=== PATIENT | female | born 1970 | race Caucasian/White ===

== ENCOUNTER 2018-05-09 09:46 | Day surgery (SDC) | payer BC ==
[~2018-05-09 09:46] MED LIST: LIDOCAINE 2% INJ 100 MG/5 ML SDV (FOR ANES.) As Ordered; PROPOFOL 200 MG/20 ML VIAL As Ordered
[2018-05-09] MEDS: NS 1,000 ML IV (10:45)
== END 2018-05-09 13:44 | disposition home or self-care (01) ==
LOC: M OPP 09:46
DX: K92.1 Melena (principal); K62.1 Rectal polyp; D12.4 Benign neoplasm of descending colon; D12.2 Benign neoplasm of ascending colon; D12.0 Benign neoplasm of cecum; K64.8 Other hemorrhoids; R10.13 Epigastric pain; K22.8 Other specified diseases of esophagus; K21.0 Gastro-esophageal reflux disease with esophagitis; K29.70 Gastritis, unspecified, without bleeding; R12 Heartburn; G43.909 Migraine, unspecified, not intractable, without status migrainosus; Z79.899 Other long term (current) drug therapy; Z80.3 Family history of malignant neoplasm of breast
CPT/HCPCS: 45385

== ENCOUNTER → 2019-12-27 | Outpatient (CLI) | payer BC ==
[~2019-12-27] MED LIST changes: +AJOV225I SC; -LIDOCAINE 2% INJ 100 MG/5 ML SDV (FOR ANES.) As Ordered; +METO200T28 PO; +NORT50CA PO; +OMEP10CASR PO; +PROP80CA PO; -PROPOFOL 200 MG/20 ML VIAL As Ordered
--- NOTE | 2019-12-27 11:28 | REP ---
HIDA SCAN WITH GALLBLADDER EJECTION FRACTION: Following the intravenous administration of 6.6 millicuries technetium 99m Mebrofenin, multiple images of the right upper quadrant performed every 5 minutes for a period of 1 hour. There is biliary to bowel transit of 15 minutes post injection. Gallbladder is visualized at 45 minutes post injection. There is no scintigraphic evidence of cholecystitis. At the 1-hour valencia, 8 ounces of Ensure Enlive is ingested and further imaging performed for 1 hour. Gallbladder activity is measured. The gallbladder ejection fraction is calculated to be 31%, which is slightly below the normal value of 35% or greater. IMPRESSION: Mildly low gallbladder ejection fraction. Electronically Signed by Josué Montana MD 01/01/2020 05:59 P
== END ==
LOC: M RAD 08:12
PROVIDERS: ATTEND Physician Assistant Medical
DX: R10.11 Right upper quadrant pain (principal); R11.0 Nausea
CPT/HCPCS: 78227; A9537

== ENCOUNTER → 2020-01-21 | Outpatient (CLI) | payer BC | LOC: M LABSMTC 12:09 | PROVIDERS: ATTEND Anesthesiology | DX: Z01.818 Encounter for other preprocedural examination (principal); Z11.59 Encounter for screening for other viral diseases | CPT/HCPCS: C9803; U0003 ==

== ENCOUNTER 2020-01-24 10:38 | Day surgery (SDC) | payer BC ==
[~2020-01-24] VITALS: Ht 147.3 cm; Wt 57.6 kg
[~2020-01-24 10:38] MED LIST changes: +LIDOCAINE 2% 100MG/5ML SDV (FOR ANES.) As Ordered ONE; +NS 1,000 ML IV ONE; +propofoL 200 MG/20 ML VIAL As Ordered ONE
[2020-01-24 12:09] VITALS: BP 131/69
--- NOTE | 2020-01-24 12:21 | ROOR ---
Patient Name: Deb Becker Procedure Date: 01/24/2020 11:17 AM Date of : 1970 Age: 49 Room: [facility] Gender: Female Note Status: Finalized Procedure: Colonoscopy Indications: High risk colon cancer surveillance: Personal history of colonic polyps Providers: Braden Gallegos MD Referring MD: Nikole RENEE MD Requesting Provider: Medicines: Monitored Anesthesia Care Complications: No immediate complications. Procedure: Pre-Anesthesia Assessment: - Prior to the procedure, a History and Physical was performed, and patient medications and allergies were reviewed. The patient is competent. The risks and benefits of the procedure and the sedation options and risks were discussed with the patient. All questions were answered and informed consent was obtained. Patient identification and proposed procedure were verified by the physician, the nurse and the anesthesiologist in the procedure room. Mental Status Examination: alert and oriented. Airway Examination: normal oropharyngeal airway and neck mobility. Respiratory Examination: clear to auscultation. CV Examination: normal. Prophylactic Antibiotics: The patient does not require prophylactic antibiotics. Prior Anticoagulants: The patient has taken no previous anticoagulant or antiplatelet agents. ASA Grade Assessment: II - A patient with mild systemic disease. After reviewing the risks and benefits, the patient was deemed in satisfactory condition to undergo the procedure. The anesthesia plan was to use monitored anesthesia care (MAC). Immediately prior to administration of medications, the patient was re-assessed for adequacy to receive sedatives. The heart rate, respiratory rate, oxygen saturations, blood pressure, adequacy of pulmonary ventilation, and response to care were monitored throughout the procedure. The physical status of the patient was re-assessed after the procedure. The Colonoscope was introduced through the anus and advanced to the terminal ileum, with identification of the appendiceal orifice and IC valve. The colonoscopy was performed without difficulty. The patient tolerated the procedure well. The quality of the bowel preparation was good. The ileocecal valve, appendiceal orifice, and rectum were photographed. Scope insertion time was 3 minutes. The total duration of the procedure was 14 minutes. Findings: The perianal and digital rectal examinations were normal. The terminal ileum appeared normal. A 4 mm polyp was found in the hepatic flexure. The polyp was sessile. The polyp was removed with a jumbo cold forceps. Resection and retrieval were complete. Verification of patient identification for the specimen was done by the physician and nurse using the patient's name, date and medical record number. Estimated blood loss was minimal. A few eight mm ulcers were found at the splenic flexure. No bleeding was present. No stigmata of recent bleeding were seen. Biopsies were taken with a cold forceps for histology. Non-bleeding external and internal hemorrhoids were found during retroflexion. The hemorrhoids were medium-sized. Impression: - The examined portion of the ileum was normal. - One 4 mm polyp at the hepatic flexure, removed with a jumbo cold forceps. Resected and retrieved. - A few ulcers at the splenic flexure. Biopsied. - Non-bleeding external and internal hemorrhoids. Recommendation: - Patient has a contact number available for emergencies. The signs and symptoms of potential delayed complications were discussed with the patient. Return to normal activities tomorrow. Written discharge instructions were provided to the patient. - High fiber diet. - Continue present medications. - Await pathology results. - Telephone GI clinic for pathology results in 2 weeks. - Repeat colonoscopy in 3 years for surveillance based on pathology results and due to personal history of colon polyps in past Colonoscopy. - Return to primary care physician. Braden Gallegos MD Braden Gallegos MD 01/24/2020 12:20:28 PM Electronically signed by Braden Gallegos MD Number of Addenda: 0 Note Initiated On: 01/24/2020 11:17 AM Estimated Blood Loss: Estimated blood loss was minimal.
== END 2020-01-24 12:36 | disposition home or self-care (01) ==
LOC: M OPP 10:38
PROVIDERS: ATTEND Internal Medicine Gastroenterology
DX: D12.6 Benign neoplasm of colon, unspecified (principal); K63.3 Ulcer of intestine; Z86.010 Personal history of colon polyps; K64.8 Other hemorrhoids; K62.5 Hemorrhage of anus and rectum; R00.0 Tachycardia, unspecified; Z79.899 Other long term (current) drug therapy

== ENCOUNTER → 2022-10-26 | Outpatient (CLI) | payer BC ==
[~2022-10-26] MED LIST changes: -LIDOCAINE 2% 100MG/5ML SDV (FOR ANES.) As Ordered ONE; +METHACHOLINE KIT INH ONE; -NS 1,000 ML IV ONE; -propofoL 200 MG/20 ML VIAL As Ordered ONE
== END ==
LOC: M CARPUL 12:15
PROVIDERS: ATTEND Physician Assistant
DX: R06.00 Dyspnea, unspecified (principal)
CPT/HCPCS: 94070; J7674

== ENCOUNTER 2024-11-07 12:04 | Inpatient (IN) | payer BC ==
[~2024-11-07] VITALS: Ht 147.3 cm; Wt 64.4 kg
[~2024-11-07 12:04] MED LIST changes: -METHACHOLINE KIT INH ONE; +METO200T15 PO; -METO200T28 PO
[2024-11-07 13:17] LABS: BASO % 0.2 % (0.0-1.0); HEMATOCRIT 37.6 % (36.0-47.0); HEMOGLOBIN 12.3 g/dl (12.0-15.5); LYMPH # 0.6 10^3/uL (1.5-5.0); MEAN CORPUSCULAR HEMOGLOBIN 31.3 pg (27.0-33.0); MEAN CORPUSCULAR HGB CONC 32.7 g/dl (32.0-36.5); MEAN CORPUSCULAR VOLUME 95.7 fl (80.0-96.0); MONO # 0.2 10^3/uL (0.0-0.8); NEUTROPHILS # 3.7 10^3/uL (1.5-8.5); NEUTROPHILS % 80.1 % (36.0-66.0); PLATELET COUNT, AUTOMATED 200 10^3/uL (150-450); RED BLOOD COUNT 3.93 10^6/uL (4.00-5.40); WHITE BLOOD COUNT 4.6 10^3/uL (4.0-10.0)
[2024-11-07 13:19] LABS: VENOUS BASE EXCESS -1.7 (-2.0-2.0); VENOUS HCO3 20.2 MMOL/L (23.0-27.0); VENOUS O2 SATURATION 98.5 % (60.0-80.0); VENOUS PARTIAL PRESSURE O2 134.4 mmHg (30.0-50.0); VENOUS PH 7.492 UNITS (7.330-7.430); VENOUS STANDARD HCO3 23.1 MMOL/L
[2024-11-07] MEDS ORDERED: BENZ200C70 PO (13:57)
[2024-11-07] MEDS ORDERED: VENTAER INH (13:57)
[2024-11-07] MEDS ORDERED: FLUO1TAB4 PO (13:57)
[2024-11-07] MEDS ORDERED: CLON0.5T2 PO (13:58)
[2024-11-07] MEDS ORDERED: BUDE10.32 INH (13:58)
[2024-11-07] MEDS ORDERED: HOME MED LIST COMPLETE! XX SCH (14:00)
[2024-11-07] MEDS: methylPREDNISolone 125MG 2ML VIAL IV ONE (14:14)
[2024-11-07] MEDS: cefTRIAXone SOD 2 GM in DEXTROSE 5% (D5W) ADV/MINI-BAG 50 ML IV ONE (14:14)
[2024-11-07] MEDS: ASPIRIN 81MG CHEW TABLET PO ONE (14:22)
[2024-11-07 14:27] LABS: INR 0.91; PROTHROMBIN TIME 12.6 SECONDS (12.5-14.5)
[2024-11-07 14:47] LABS: ALBUMIN 2.1 G/DL (3.2-5.2); ALKALINE PHOSPHATASE 200 U/L (35-104); ALT/SGPT 60 U/L (7.0-40); AST/SGOT 99 U/L (<34); BILIRUBIN,DIRECT 0.2 MG/DL (<0.4); BILIRUBIN,TOTAL 0.4 MG/DL (0.3-1.2); BLOOD UREA NITROGEN 24 MG/DL (9-23); CALCIUM LEVEL 7.3 MG/DL (8.5-10.1); CARBON DIOXIDE LEVEL 24 MMOL/L (20-31); CHLORIDE LEVEL 102 MMOL/L (98-107); CK-MB VALUE MASS < 1.0 NG/ML (<3.6); CPK CREATINE PHOSPHOKINASE 235 U/L (34-145); CREATININE FOR GFR 0.87 MG/DL (0.55-1.30); GLOMERULAR FILTRATION RATE 80.1 (>51); GLUCOSE, FASTING 85 MG/DL (60-100); MB/CK RELATIVE INDEX 0.42 (< OR =4); POTASSIUM SERUM 4.7 MMOL/L (3.5-5.1); SODIUM LEVEL 134 MMOL/L (136-145); TOTAL PROTEIN 5.4 G/DL (5.7-8.2)
[2024-11-07] MEDS ORDERED: ISOVUE-370 76% 100ML VIAL As Ordered ONE (14:53)
[2024-11-07] MEDS: AZITHROMYCIN INJ 500 MG, VIAL MATE ADAPTER 1 EACH in D5W 250 ML IV ONE (15:26)
[2024-11-07] MEDS: IPRATROPIUM 0.5MG/ALBUTEROL 2.5MG INH SOL UD 3ML NEB PRN (15:38)
[2024-11-07] MEDS ORDERED: OMEPRAZOLE 20MG CAP PO PRN (15:55)
[2024-11-07] MEDS: OSELTAMIVIR PHOSPHATE 75 MG CAP PO ONE (17:12)
[2024-11-07 17:13] LABS: PROCALCITONIN 0.69 ng/ml
[2024-11-07] MEDS: NS (Normal Saline) 0.9% 1,000 ML IV ONE (17:13)
[2024-11-07 17:20] LABS: HEPATITIS B SURFACE ANTIGEN NEGATIVE (NEGATIVE)
[2024-11-07 17:30] VITALS: BP 108/66; TEMP 96.6; TEMP 97.3; O2SAT 90
[2024-11-07 17:42] LABS: C REACTIVE PROTEIN QUANTITATIV 30.99 MG/DL (<1.0); HEPATITIS B CORE ANTIBODY IGM NEGATIVE (NEGATIVE); HEPATITIS C VIRUS ABY INDEX 0.02 INDEX (<0.8)
[2024-11-07] MEDS: FLUoxetine 20MG CAP PO SCH (18:29)
[2024-11-07] MEDS: IPRATROPIUM 0.5MG/ALBUTEROL 2.5MG INH SOL UD 3ML NEB SCH (20:08)
[2024-11-07] MEDS: SYMBICORT 160/4.5MCG INHALER 6GM INH SCH (20:08)
[2024-11-07 20:41] VITALS: BP 92/58; TEMP 96.7; TEMP 98.4; O2SAT 91
[2024-11-07] MEDS: METOPROLOL SUCC (TopROL XL) 100MG *XL* TAB PO SCH (21:00)
[2024-11-07] MEDS: guaiFENesin ER TABLET 600 MG TAB PO SCH (21:06)
[2024-11-07] MEDS: NORTRIPTYLINE 25 MG CAP PO SCH (21:06)
[2024-11-07] MEDS: DOXYCYCLINE HYCLATE 100 MG in DEXTROSE 5% (D5W) MINI-BAG PLU 100 ML IV SCH (21:06)
[2024-11-07 22:47] VITALS: BP 104/66
[2024-11-08 05:08] VITALS: BP 108/87; TEMP 97; O2SAT 90
[2024-11-08 06:32] LABS: ALBUMIN 1.9 G/DL (3.2-5.2); ALKALINE PHOSPHATASE 179 U/L (35-104); ALT/SGPT 51 U/L (7.0-40); AST/SGOT 61 U/L (<34); BILIRUBIN,TOTAL 0.2 MG/DL (0.3-1.2); BLOOD UREA NITROGEN 15 MG/DL (9-23); CALCIUM LEVEL 7.2 MG/DL (8.5-10.1); CARBON DIOXIDE LEVEL 25 MMOL/L (20-31); CHLORIDE LEVEL 106 MMOL/L (98-107); CREATININE FOR GFR 0.64 MG/DL (0.55-1.30); GLOMERULAR FILTRATION RATE > 90.0 (>51); GLUCOSE, FASTING 167 MG/DL (60-100); POTASSIUM SERUM 3.5 MMOL/L (3.5-5.1); SODIUM LEVEL 142 MMOL/L (136-145)
[2024-11-08] MEDS: predniSONE 20 MG TAB PO SCH (08:34)
[2024-11-08] MEDS: DOXYCYCLINE HYCLATE 100MG TABLET PO SCH (08:35)
[2024-11-08] MEDS: OSELTAMIVIR PHOSPHATE 75 MG CAP PO SCH (08:35)
[2024-11-08] MEDS: ENOXAPARIN 40MG/0.4ML SYRINGE (J1650 PER 10MG) SC SCH (08:36)
[2024-11-08] MEDS: cefTRIAXone SOD 1 GM in DEXTROSE 5% (D5W) ADV/MINI-BAG 50 ML IV SCH (08:45)
[2024-11-08] MEDS: IBUPROFEN 600MG TAB PO PRN (08:54)
[2024-11-08] MEDS: MAG SULF 1GM/100ML (MAG RUN) 1 GM in IV 1 EA IV SCH (11:07)
[2024-11-08 12:00] VITALS: BP 125/75; O2SAT 92
[2024-11-08 13:49] VITALS: TEMP 98
[2024-11-08 16:39] LABS: ABG BASE EXCESS -1.6 (-2.0-2.0); ABG HCO3 22.3 MMOL/L (22.0-26.0); ABG O2 SATURATION 94.5 % (95.0-99.0); ABG PARTIAL PRESSURE CO2 34.8 mmHg (35.0-45.0); ABG PARTIAL PRESSURE O2 74.6 mmHg (75.0-100.0); ABG STANDARD HCO3 23.1 MMOL/L. (22.0-26.0); ABG TOTAL CO2 23.3 MMOL/L (22.0-29.0); ABG pH (ARTERIAL) 7.424 UNITS (7.350-7.450)
[2024-11-08 18:51] VITALS: O2SAT 92
[2024-11-08 20:00] VITALS: BP 124/75; TEMP 98; O2SAT 91
[2024-11-09 03:49] VITALS: BP 125/84; TEMP 97; O2SAT 95
[2024-11-09 07:24] LABS: BASO % 0.1 % (0.0-1.0); HEMATOCRIT 32.5 % (36.0-47.0); LYMPH # 0.8 10^3/uL (1.5-5.0); MEAN CORPUSCULAR HEMOGLOBIN 31.7 pg (27.0-33.0); MEAN CORPUSCULAR HGB CONC 33.8 g/dl (32.0-36.5); MEAN CORPUSCULAR VOLUME 93.7 fl (80.0-96.0); MONO # 0.6 10^3/uL (0.0-0.8); MONO % 5.7 % (2.0-8.0); NEUTROPHILS # 8.3 10^3/uL (1.5-8.5); NEUTROPHILS % 85.5 % (36.0-66.0); PLATELET COUNT, AUTOMATED 295 10^3/uL (150-450); RED BLOOD COUNT 3.47 10^6/uL (4.00-5.40); WHITE BLOOD COUNT 9.7 10^3/uL (4.0-10.0)
[2024-11-09 07:47] LABS: ALKALINE PHOSPHATASE 151 U/L (35-104); ALT/SGPT 43 U/L (7.0-40); AST/SGOT 54 U/L (<34); BILIRUBIN,DIRECT 0.1 MG/DL (<0.4); BILIRUBIN,TOTAL 0.3 MG/DL (0.3-1.2); BLOOD UREA NITROGEN 22 MG/DL (9-23); CALCIUM LEVEL 7.8 MG/DL (8.5-10.1); CARBON DIOXIDE LEVEL 26 MMOL/L (20-31); CHLORIDE LEVEL 108 MMOL/L (98-107); CREATININE FOR GFR 0.66 MG/DL (0.55-1.30); GLOMERULAR FILTRATION RATE > 90.0 (>51); GLUCOSE, FASTING 126 MG/DL (60-100); MAGNESIUM LEVEL 2.2 MG/DL (1.8-2.4); POTASSIUM SERUM 3.5 MMOL/L (3.5-5.1); SODIUM LEVEL 143 MMOL/L (136-145); TOTAL PROTEIN 5.1 G/DL (5.7-8.2)
[2024-11-09] MEDS: BUDESONIDE 180MCG INHALER (PULMICORT FLEXHALER) INH SCH (08:00)
[2024-11-09 12:00] VITALS: BP 116/70; TEMP 96.8; O2SAT 90
[2024-11-09] MEDS: methylPREDNISolone 40MG 1ML VIAL IV SCH (14:05)
[2024-11-09 20:10] VITALS: BP_SYST 108; BP_SYST 109; BP_DIAS 68; BP_DIAS 69; TEMP 97.3; O2SAT 90
[2024-11-09] MEDS: clonazePAM 0.5 MG TAB PO PRN (22:37)
[2024-11-09 23:00] VITALS: O2SAT 90
[2024-11-10] VITALS (22 sets, daily range): BP systolic 100–135; BP diastolic 60–80; TEMP 97–98.5; O2SAT 79–98
[2024-11-10] MEDS: IPRATROPIUM 0.5MG/ALBUTEROL 2.5MG INH SOL UD 3ML NEB PRN (05:55)
[2024-11-10 07:06] LABS: ALBUMIN 2.1 G/DL (3.2-5.2); ALKALINE PHOSPHATASE 147 U/L (35-104); ALT/SGPT 46 U/L (7.0-40); AST/SGOT 54 U/L (<34); BILIRUBIN,DIRECT 0.1 MG/DL (<0.4); BILIRUBIN,TOTAL 0.3 MG/DL (0.3-1.2); BLOOD UREA NITROGEN 25 MG/DL (9-23); CALCIUM LEVEL 7.9 MG/DL (8.5-10.1); CARBON DIOXIDE LEVEL 27 MMOL/L (20-31); CHLORIDE LEVEL 107 MMOL/L (98-107); CREATININE FOR GFR 0.62 MG/DL (0.55-1.30); GLOMERULAR FILTRATION RATE > 90.0 (>51); GLUCOSE, FASTING 131 MG/DL (60-100); MAGNESIUM LEVEL 2.2 MG/DL (1.8-2.4); POTASSIUM SERUM 3.7 MMOL/L (3.5-5.1); SODIUM LEVEL 145 MMOL/L (136-145); TOTAL PROTEIN 5.3 G/DL (5.7-8.2)
[2024-11-10 07:15] LABS: BASO % 0.1 % (0.0-1.0); HEMATOCRIT 34.2 % (36.0-47.0); HEMOGLOBIN 11.2 g/dl (12.0-15.5); LYMPH # 0.6 10^3/uL (1.5-5.0); LYMPH % 3.8 % (24.0-44.0); MEAN CORPUSCULAR HEMOGLOBIN 31.2 pg (27.0-33.0); MEAN CORPUSCULAR HGB CONC 32.7 g/dl (32.0-36.5); MEAN CORPUSCULAR VOLUME 95.3 fl (80.0-96.0); MONO # 0.7 10^3/uL (0.0-0.8); MONO % 4.4 % (2.0-8.0); NEUTROPHILS # 13.9 10^3/uL (1.5-8.5); NEUTROPHILS % 90.9 % (36.0-66.0); PLATELET COUNT, AUTOMATED 339 10^3/uL (150-450); RED BLOOD COUNT 3.59 10^6/uL (4.00-5.40); WHITE BLOOD COUNT 15.3 10^3/uL (4.0-10.0)
[2024-11-10] MEDS ORDERED: VANCOMYCIN HCL 1 MG in IV FLUID PLACE HOLDER 1 EA IV SCH (07:35)
[2024-11-10] MEDS: BUDESONIDE 0.5 MG/2 ML INHALATION SUSPENSION NEB STA (08:02)
[2024-11-10 08:33] LABS: ABG BASE EXCESS 3.5 (-2.0-2.0); ABG HCO3 27.5 MMOL/L (22.0-26.0); ABG O2 SATURATION 94.6 % (95.0-99.0); ABG PARTIAL PRESSURE CO2 39.8 mmHg (35.0-45.0); ABG PARTIAL PRESSURE O2 78.1 mmHg (75.0-100.0); ABG STANDARD HCO3 27.5 MMOL/L. (22.0-26.0); ABG TOTAL CO2 28.8 MMOL/L (22.0-29.0); ABG pH (ARTERIAL) 7.458 UNITS (7.350-7.450)
[2024-11-10] MEDS: CEFEPIME HCL 2 GM in DEXTROSE 5% (D5W) ADV/MINI-BAG 50 ML IV SCH (09:29)
[2024-11-10] MEDS: VANCOMYCIN HCL 1,000 MG, VIAL MATE ADAPTER 1 EACH in NS 250 ML IV ONE (14:01)
[2024-11-10] MEDS: BUDESONIDE 0.5 MG/2 ML INHALATION SUSPENSION NEB SCH (19:37)
[2024-11-10] MEDS: VANCOMYCIN HCL 750 MG, VIAL MATE ADAPTER 1 EACH in NS 250 ML IV SCH (20:14)
[2024-11-10] MEDS: BENZONATATE 100MG CAPSULE PO PRN (22:08)
[2024-11-11] VITALS (31 sets, daily range): BP systolic 107–155; BP diastolic 56–72; TEMP 97.1–98.3; O2SAT 83–98
[2024-11-11 05:07] LABS: BASO % 0.2 % (0.0-1.0); HEMOGLOBIN 10.6 g/dl (12.0-15.5); LYMPH # 0.7 10^3/uL (1.5-5.0); LYMPH % 3.6 % (24.0-44.0); MEAN CORPUSCULAR HEMOGLOBIN 31.3 pg (27.0-33.0); MEAN CORPUSCULAR HGB CONC 33.1 g/dl (32.0-36.5); MEAN CORPUSCULAR VOLUME 94.4 fl (80.0-96.0); MONO # 0.5 10^3/uL (0.0-0.8); MONO % 2.6 % (2.0-8.0); NEUTROPHILS % 92.2 % (36.0-66.0); PLATELET COUNT, AUTOMATED 328 10^3/uL (150-450); RED BLOOD COUNT 3.39 10^6/uL (4.00-5.40); WHITE BLOOD COUNT 18.4 10^3/uL (4.0-10.0)
[2024-11-11 05:49] LABS: ALBUMIN 1.8 G/DL (3.2-5.2); ALKALINE PHOSPHATASE 117 U/L (35-104); ALT/SGPT 42 U/L (7.0-40); AST/SGOT 48 U/L (<34); BILIRUBIN,DIRECT 0.1 MG/DL (<0.4); BILIRUBIN,TOTAL 0.3 MG/DL (0.3-1.2); BLOOD UREA NITROGEN 24 MG/DL (9-23); CALCIUM LEVEL 7.5 MG/DL (8.5-10.1); CARBON DIOXIDE LEVEL 27 MMOL/L (20-31); CHLORIDE LEVEL 106 MMOL/L (98-107); CREATININE FOR GFR 0.55 MG/DL (0.55-1.30); GLOMERULAR FILTRATION RATE > 90.0 (>51); GLUCOSE, FASTING 232 MG/DL (60-100); MAGNESIUM LEVEL 2.1 MG/DL (1.8-2.4); POTASSIUM SERUM 3.8 MMOL/L (3.5-5.1); SODIUM LEVEL 143 MMOL/L (136-145); TOTAL PROTEIN 4.9 G/DL (5.7-8.2)
[2024-11-11] MEDS: FUROSEMIDE 20MG/2ML VIAL IV ONE ×2 (10:03→12:36)
[2024-11-11 10:39] LABS: VANCOMYCIN LEVEL TROUGH 13.5 UG/ML (10.0-20.0)
[2024-11-11] MEDS ORDERED: FUROSEMIDE 20MG/2ML VIAL IV ONE (11:05)
[2024-11-11 14:40] LABS: PROCALCITONIN 0.18 ng/ml
[2024-11-11] MEDS: METOPROLOL SUCC (TopROL XL) 50MG **XL** TAB PO SCH (20:18)
[2024-11-12] VITALS (29 sets, daily range): BP systolic 106–135; BP diastolic 55–79; TEMP 97–98.8; O2SAT 89–98
[2024-11-12 05:19] LABS: BASO % 0.2 % (0.0-1.0); HEMATOCRIT 31.7 % (36.0-47.0); HEMOGLOBIN 10.2 g/dl (12.0-15.5); LYMPH # 0.6 10^3/uL (1.5-5.0); LYMPH % 3.5 % (24.0-44.0); MEAN CORPUSCULAR HEMOGLOBIN 30.5 pg (27.0-33.0); MEAN CORPUSCULAR HGB CONC 32.2 g/dl (32.0-36.5); MEAN CORPUSCULAR VOLUME 94.9 fl (80.0-96.0); MONO # 0.5 10^3/uL (0.0-0.8); NEUTROPHILS # 15.4 10^3/uL (1.5-8.5); NEUTROPHILS % 91.6 % (36.0-66.0); PLATELET COUNT, AUTOMATED 362 10^3/uL (150-450); RED BLOOD COUNT 3.34 10^6/uL (4.00-5.40); WHITE BLOOD COUNT 16.8 10^3/uL (4.0-10.0)
[2024-11-12 05:40] LABS: ALBUMIN 1.7 G/DL (3.2-5.2); ALKALINE PHOSPHATASE 113 U/L (35-104); ALT/SGPT 40 U/L (7.0-40); AST/SGOT 40 U/L (<34); BILIRUBIN,DIRECT 0.2 MG/DL (<0.4); BILIRUBIN,TOTAL 0.4 MG/DL (0.3-1.2); BLOOD UREA NITROGEN 30 MG/DL (9-23); CALCIUM LEVEL 7.7 MG/DL (8.5-10.1); CARBON DIOXIDE LEVEL 31 MMOL/L (20-31); CHLORIDE LEVEL 106 MMOL/L (98-107); CREATININE FOR GFR 0.55 MG/DL (0.55-1.30); GLOMERULAR FILTRATION RATE > 90.0 (>51); GLUCOSE, FASTING 148 MG/DL (60-100); MAGNESIUM LEVEL 2.4 MG/DL (1.8-2.4); POTASSIUM SERUM 3.9 MMOL/L (3.5-5.1); SODIUM LEVEL 145 MMOL/L (136-145); TOTAL PROTEIN 5.1 G/DL (5.7-8.2)
[2024-11-12 09:03] LABS: ABG BASE EXCESS 3.3 (-2.0-2.0); ABG HCO3 27.3 MMOL/L (22.0-26.0); ABG PARTIAL PRESSURE CO2 39.4 mmHg (35.0-45.0); ABG PARTIAL PRESSURE O2 96.4 mmHg (75.0-100.0); ABG STANDARD HCO3 27.4 MMOL/L. (22.0-26.0); ABG TOTAL CO2 28.5 MMOL/L (22.0-29.0); ABG pH (ARTERIAL) 7.458 UNITS (7.350-7.450)
[2024-11-12] MEDS: FUROSEMIDE 20MG/2ML VIAL IV ONE (10:39)
[2024-11-12] MEDS: ALPRAZolam 0.5 MG TAB PO PRN (14:53)
[2024-11-12] MEDS: methylPREDNISolone 1,000 MG, VIAL MATE ADAPTER 1 EACH in NS 100 ML IV SCH (16:11)
[2024-11-12] MEDS: clonazePAM 0.5 MG TAB PO SCH (21:35)
[2024-11-13] VITALS (57 sets, daily range): BP systolic 71–202; BP diastolic 36–103; TEMP 96.8–99.9; O2SAT 75–98
[2024-11-13 06:03] LABS: BASO % 0.1 % (0.0-1.0); HEMATOCRIT 29.9 % (36.0-47.0); HEMOGLOBIN 9.9 g/dl (12.0-15.5); LYMPH # 0.6 10^3/uL (1.5-5.0); LYMPH % 3.9 % (24.0-44.0); MEAN CORPUSCULAR HEMOGLOBIN 31.4 pg (27.0-33.0); MEAN CORPUSCULAR HGB CONC 33.1 g/dl (32.0-36.5); MEAN CORPUSCULAR VOLUME 94.9 fl (80.0-96.0); MONO # 0.5 10^3/uL (0.0-0.8); MONO % 3.3 % (2.0-8.0); NEUTROPHILS % 90.3 % (36.0-66.0); PLATELET COUNT, AUTOMATED 353 10^3/uL (150-450); RED BLOOD COUNT 3.15 10^6/uL (4.00-5.40); WHITE BLOOD COUNT 14.4 10^3/uL (4.0-10.0)
[2024-11-13 06:35] LABS: ALBUMIN 1.7 G/DL (3.2-5.2); ALKALINE PHOSPHATASE 113 U/L (35-104); ALT/SGPT 54 U/L (7.0-40); AST/SGOT 39 U/L (<34); BILIRUBIN,DIRECT 0.2 MG/DL (<0.4); BILIRUBIN,TOTAL 0.4 MG/DL (0.3-1.2); BLOOD UREA NITROGEN 29 MG/DL (9-23); CALCIUM LEVEL 7.8 MG/DL (8.5-10.1); CARBON DIOXIDE LEVEL 30 MMOL/L (20-31); CHLORIDE LEVEL 102 MMOL/L (98-107); CREATININE FOR GFR 0.54 MG/DL (0.55-1.30); GLOMERULAR FILTRATION RATE > 90.0 (>51); GLUCOSE, FASTING 207 MG/DL (60-100); MAGNESIUM LEVEL 2.4 MG/DL (1.8-2.4); POTASSIUM SERUM 3.7 MMOL/L (3.5-5.1); SODIUM LEVEL 143 MMOL/L (136-145); TOTAL PROTEIN 4.9 G/DL (5.7-8.2)
[2024-11-13] MEDS: ETOMIDATE INJ 20MG/10ML VIAL IV STA (11:40)
[2024-11-13] MEDS ORDERED: ROCURONIUM BROMIDE 50MG/5ML VIAL IV SCH (11:41)
[2024-11-13] MEDS: LR 1,000 ML IV SCH (11:43)
[2024-11-13] MEDS: propofoL 1,000 MG in IV 1 EA IV SCH (11:54)
[2024-11-13] MEDS ORDERED: PHENYLephrine 500MCG 5ML (100MCG/ML) SYRINGE As Ordered ONE (12:03)
[2024-11-13 12:32] LABS: ABG BASE EXCESS 4.7 (-2.0-2.0); ABG HCO3 30.1 MMOL/L (22.0-26.0); ABG O2 SATURATION 97.2 % (95.0-99.0); ABG PARTIAL PRESSURE CO2 48.3 mmHg (35.0-45.0); ABG PARTIAL PRESSURE O2 104.9 mmHg (75.0-100.0); ABG STANDARD HCO3 28.7 MMOL/L. (22.0-26.0); ABG TOTAL CO2 31.6 MMOL/L (22.0-29.0); ABG pH (ARTERIAL) 7.413 UNITS (7.350-7.450)
[2024-11-13] MEDS ORDERED: FENTANYL DRIP LOCK BOX KEY 1 EACH XX PRN (13:00)
[2024-11-13] MEDS: MIDAZOLAM INJ 2MG/2ML VIAL IV PRN (13:16)
[2024-11-13] MEDS: fentaNYL CITRATE/NaCl 1,000 MCG in IV 1 EA IV SCH (13:17)
[2024-11-13] MEDS: PANTOPRAZOLE 40MG VIAL IV SCH (16:34)
[2024-11-14] VITALS (60 sets, daily range): BP systolic 75–128; BP diastolic 47–66; TEMP 98.6–99.8; O2SAT 84–99
[2024-11-14 04:47] LABS: BASO % 0.1 % (0.0-1.0); HEMATOCRIT 29.6 % (36.0-47.0); HEMOGLOBIN 9.7 g/dl (12.0-15.5); LYMPH # 0.4 10^3/uL (1.5-5.0); MEAN CORPUSCULAR HEMOGLOBIN 31.4 pg (27.0-33.0); MEAN CORPUSCULAR HGB CONC 32.8 g/dl (32.0-36.5); MEAN CORPUSCULAR VOLUME 95.8 fl (80.0-96.0); MONO # 0.6 10^3/uL (0.0-0.8); MONO % 5.3 % (2.0-8.0); NEUTROPHILS # 10.9 10^3/uL (1.5-8.5); NEUTROPHILS % 89.5 % (36.0-66.0); PLATELET COUNT, AUTOMATED 330 10^3/uL (150-450); RED BLOOD COUNT 3.09 10^6/uL (4.00-5.40); WHITE BLOOD COUNT 12.2 10^3/uL (4.0-10.0)
[2024-11-14 05:21] LABS: ALBUMIN 1.7 G/DL (3.2-5.2); ALKALINE PHOSPHATASE 100 U/L (35-104); ALT/SGPT 54 U/L (7.0-40); AST/SGOT 45 U/L (<34); BILIRUBIN,DIRECT 0.2 MG/DL (<0.4); BILIRUBIN,TOTAL 0.4 MG/DL (0.3-1.2); BLOOD UREA NITROGEN 48 MG/DL (9-23); CALCIUM LEVEL 8.1 MG/DL (8.5-10.1); CARBON DIOXIDE LEVEL 27 MMOL/L (20-31); CHLORIDE LEVEL 104 MMOL/L (98-107); CREATININE FOR GFR 0.92 MG/DL (0.55-1.30); GLOMERULAR FILTRATION RATE 74.9 (>51); GLUCOSE, FASTING 259 MG/DL (60-100); MAGNESIUM LEVEL 2.7 MG/DL (1.8-2.4); POTASSIUM SERUM 3.8 MMOL/L (3.5-5.1); SODIUM LEVEL 142 MMOL/L (136-145); TOTAL PROTEIN 5.1 G/DL (5.7-8.2)
[2024-11-14 13:00] LABS: HIV 1&2 SCREEN NEGATIVE (NEGATIVE)
[2024-11-14] MEDS ORDERED: MEROPENEM INJ 1 GM in IV 1 EA IV SCH (13:00)
[2024-11-14] MEDS: AMPHOTERICIN B LIPOSOME IV SCH (13:38)
[2024-11-14] MEDS: D5W IV SCH (13:38)
[2024-11-14] MEDS: NS (Normal Saline) 0.9% 1,000 ML IV ONE (15:20)
[2024-11-14] MEDS: VANCOMYCIN HCL 1,000 MG, VIAL MATE ADAPTER 1 EACH in NS 250 ML IV ONE (16:50)
[2024-11-14] MEDS: MEROPENEM INJ 1 GM in IV 1 EA IV SCH (18:10)
[2024-11-14] MEDS: methylPREDNISolone 125MG 2ML VIAL IV SCH (18:10)
[2024-11-14] MEDS: VANCOMYCIN HCL 1,000 MG, VIAL MATE ADAPTER 1 EACH in NS 250 ML IV SCH (22:18)
[2024-11-15] VITALS (32 sets, daily range): BP systolic 92–128; BP diastolic 51–69; TEMP 98.4–100.6; O2SAT 88–98
[2024-11-15 05:07] LABS: BASO % 0.1 % (0.0-1.0); HEMATOCRIT 26.3 % (36.0-47.0); HEMOGLOBIN 8.5 g/dl (12.0-15.5); LYMPH # 0.3 10^3/uL (1.5-5.0); LYMPH % 1.8 % (24.0-44.0); MEAN CORPUSCULAR HEMOGLOBIN 31.4 pg (27.0-33.0); MEAN CORPUSCULAR HGB CONC 32.3 g/dl (32.0-36.5); MONO # 0.6 10^3/uL (0.0-0.8); MONO % 4.1 % (2.0-8.0); NEUTROPHILS # 13.9 10^3/uL (1.5-8.5); NEUTROPHILS % 89.3 % (36.0-66.0); PLATELET COUNT, AUTOMATED 321 10^3/uL (150-450); RED BLOOD COUNT 2.71 10^6/uL (4.00-5.40); WHITE BLOOD COUNT 15.5 10^3/uL (4.0-10.0)
[2024-11-15 05:40] LABS: ALBUMIN 1.5 G/DL (3.2-5.2); BILIRUBIN,DIRECT 0.2 MG/DL (<0.4); BILIRUBIN,TOTAL 0.3 MG/DL (0.3-1.2); CALCIUM LEVEL 7.8 MG/DL (8.5-10.1); CREATININE FOR GFR 0.88 MG/DL (0.55-1.30); MAGNESIUM LEVEL 2.7 MG/DL (1.8-2.4); POTASSIUM SERUM 4.3 MMOL/L (3.5-5.1); TOTAL PROTEIN 4.7 G/DL (5.7-8.2)
[2024-11-15] MEDS ORDERED: GLUCAGON INJ 1MG VIAL SC PRN (07:30)
[2024-11-15] MEDS ORDERED: GLUCOSE 4 GM CHEW PO PRN (07:30)
[2024-11-15] MEDS ORDERED: DEXTROSE 50% 50ML SYRINGE IV PRN (07:30)
[2024-11-15 08:19] LABS: ABG HCO3 26.4 MMOL/L (22.0-26.0); ABG O2 SATURATION 97.8 % (95.0-99.0); ABG PARTIAL PRESSURE CO2 40.2 mmHg (35.0-45.0); ABG PARTIAL PRESSURE O2 107.9 mmHg (75.0-100.0); ABG STANDARD HCO3 26.3 MMOL/L. (22.0-26.0); ABG TOTAL CO2 27.6 MMOL/L (22.0-29.0); ABG pH (ARTERIAL) 7.435 UNITS (7.350-7.450)
[2024-11-15] MEDS ORDERED: ACETAMINOPHEN 325MG/10.15ML UDC GT PRN (08:30)
[2024-11-15 09:22] LABS: ABG HCO3 24.4 MMOL/L (22.0-26.0); ABG PARTIAL PRESSURE CO2 38.8 mmHg (35.0-45.0); ABG PARTIAL PRESSURE O2 176.7 mmHg (75.0-100.0); ABG STANDARD HCO3 24.5 MMOL/L. (22.0-26.0); ABG TOTAL CO2 25.6 MMOL/L (22.0-29.0); ABG pH (ARTERIAL) 7.417 UNITS (7.350-7.450)
[2024-11-15] MEDS: MIDAZOLAM 100MG/100ML-0.9%NACL 100 MG in IV 1 EA IV SCH (09:30)
[2024-11-15] MEDS: INSULIN LISPRO (NovoLOG) PER UNIT SC SCH (10:10)
[2024-11-15] MEDS: INSULIN LISPRO (NovoLOG) PER UNIT SC ONE (10:23)
[2024-11-15] MEDS ORDERED: D5W IV SCH (14:00)
[2024-11-15] MEDS ORDERED: AMPHOTERICIN B LIPOSOME IV SCH (14:00)
[2024-11-15] MEDS: D5W IV SCH (14:28)
[2024-11-15] MEDS: AMPHOTERICIN B LIPOSOME IV SCH (14:28)
[2024-11-15 15:19] LABS: C REACTIVE PROTEIN QUANTITATIV 5.19 MG/DL (<1.0)
[2024-11-16] VITALS (39 sets, daily range): BP systolic 97–139; BP diastolic 50–70; TEMP 97.3–100.4; O2SAT 89–96
[2024-11-16 05:49] LABS: ABG BASE EXCESS 3.8 (-2.0-2.0); ABG HCO3 28.3 MMOL/L (22.0-26.0); ABG O2 SATURATION 95.8 % (95.0-99.0); ABG PARTIAL PRESSURE CO2 42.6 mmHg (35.0-45.0); ABG PARTIAL PRESSURE O2 81.6 mmHg (75.0-100.0); ABG STANDARD HCO3 27.9 MMOL/L. (22.0-26.0); ABG TOTAL CO2 29.7 MMOL/L (22.0-29.0); ABG pH (ARTERIAL) 7.441 UNITS (7.350-7.450)
[2024-11-16 06:17] LABS: HEMATOCRIT 26.4 % (36.0-47.0); HEMOGLOBIN 8.4 g/dl (12.0-15.5); MEAN CORPUSCULAR HEMOGLOBIN 31.1 pg (27.0-33.0); MEAN CORPUSCULAR HGB CONC 31.8 g/dl (32.0-36.5); MEAN CORPUSCULAR VOLUME 97.8 fl (80.0-96.0); PLATELET COUNT, AUTOMATED 267 10^3/uL (150-450); WHITE BLOOD COUNT 22.4 10^3/uL (4.0-10.0)
[2024-11-16 06:51] LABS: ALBUMIN 1.5 G/DL (3.2-5.2); BILIRUBIN,DIRECT 0.2 MG/DL (<0.4); BILIRUBIN,TOTAL 0.4 MG/DL (0.3-1.2); CALCIUM LEVEL 8.2 MG/DL (8.5-10.1); CREATININE FOR GFR 0.89 MG/DL (0.55-1.30); MAGNESIUM LEVEL 2.5 MG/DL (1.8-2.4); POTASSIUM SERUM 4.7 MMOL/L (3.5-5.1); TOTAL PROTEIN 4.6 G/DL (5.7-8.2)
[2024-11-16 06:59] LABS: LYMPHOCYTES 7 % (16-44); MONOCYTES 5 % (0-5); NEUTROPHILS 83 % (28-66); PLATELET ESTIMATE NORMAL (NORMAL)
[2024-11-16] MEDS: methylPREDNISolone 125MG 2ML VIAL IV SCH ×2 (10:09→22:08)
[2024-11-16] MEDS: FUROSEMIDE 20MG/2ML VIAL IV ONE (10:10)
[2024-11-16] MEDS: ROCURONIUM BROMIDE 50MG/5ML VIAL IV ONE (10:35)
[2024-11-16] MEDS: propofoL 1,000 MG in IV 1 EA IV SCH (10:49)
[2024-11-16] MEDS: CISATRACURIUM 200 MG in NS 480 ML IV SCH (11:49)
[2024-11-16 12:06] LABS: ABG BASE EXCESS 2.1 (-2.0-2.0); ABG HCO3 28.2 MMOL/L (22.0-26.0); ABG O2 SATURATION 92.3 % (95.0-99.0); ABG PARTIAL PRESSURE CO2 52.2 mmHg (35.0-45.0); ABG PARTIAL PRESSURE O2 70.1 mmHg (75.0-100.0); ABG STANDARD HCO3 26.2 MMOL/L. (22.0-26.0); ABG TOTAL CO2 29.8 MMOL/L (22.0-29.0); ABG pH (ARTERIAL) 7.351 UNITS (7.350-7.450)
[2024-11-17] VITALS (42 sets, daily range): BP systolic 97–154; BP diastolic 50–81; TEMP 98.1–100.4; O2SAT 89–94
[2024-11-17 04:59] LABS: ABG BASE EXCESS 3.5 (-2.0-2.0); ABG HCO3 32.9 MMOL/L (22.0-26.0); ABG O2 SATURATION 95.4 % (95.0-99.0); ABG PARTIAL PRESSURE O2 91.7 mmHg (75.0-100.0); ABG STANDARD HCO3 27.5 MMOL/L. (22.0-26.0); ABG TOTAL CO2 35.4 MMOL/L (22.0-29.0)
[2024-11-17 05:03] LABS: ABG pH (ARTERIAL) 7.218 UNITS (7.350-7.450)
[2024-11-17 05:04] LABS: ABG PARTIAL PRESSURE CO2 82.5 mmHg (35.0-45.0)
[2024-11-17 05:25] LABS: HEMATOCRIT 30.2 % (36.0-47.0); MEAN CORPUSCULAR HGB CONC 29.8 g/dl (32.0-36.5); MEAN CORPUSCULAR VOLUME 104.1 fl (80.0-96.0); PLATELET COUNT, AUTOMATED 235 10^3/uL (150-450); WHITE BLOOD COUNT 22.5 10^3/uL (4.0-10.0)
[2024-11-17 05:53] LABS: ALBUMIN 1.6 G/DL (3.2-5.2); BILIRUBIN,TOTAL 0.3 MG/DL (0.3-1.2); CALCIUM LEVEL 8.2 MG/DL (8.5-10.1); CREATININE FOR GFR 1.04 MG/DL (0.55-1.30); GLOMERULAR FILTRATION RATE 64.7 (>51); POTASSIUM SERUM 5.7 MMOL/L (3.5-5.1); TOTAL PROTEIN 4.9 G/DL (5.7-8.2)
[2024-11-17 06:37] LABS: ABG BASE EXCESS 2.8 (-2.0-2.0); ABG HCO3 30.8 MMOL/L (22.0-26.0); ABG O2 SATURATION 95.3 % (95.0-99.0); ABG PARTIAL PRESSURE O2 84.3 mmHg (75.0-100.0); ABG STANDARD HCO3 26.9 MMOL/L. (22.0-26.0); ABG TOTAL CO2 32.9 MMOL/L (22.0-29.0); ABG pH (ARTERIAL) 7.271 UNITS (7.350-7.450)
[2024-11-17 06:40] LABS: ABG PARTIAL PRESSURE CO2 68.4 mmHg (35.0-45.0)
[2024-11-17 07:31] LABS: ALBUMIN 1.5 G/DL (3.2-5.2); BILIRUBIN,TOTAL 0.2 MG/DL (0.3-1.2); CALCIUM LEVEL 7.9 MG/DL (8.5-10.1); CREATININE FOR GFR 1.04 MG/DL (0.55-1.30); GLOMERULAR FILTRATION RATE 64.7 (>51); POTASSIUM SERUM 5.8 MMOL/L (3.5-5.1); TOTAL PROTEIN 4.7 G/DL (5.7-8.2)
[2024-11-17 07:34] LABS: ABG BASE EXCESS 3.5 (-2.0-2.0); ABG HCO3 31.2 MMOL/L (22.0-26.0); ABG O2 SATURATION 94.7 % (95.0-99.0); ABG PARTIAL PRESSURE O2 79.8 mmHg (75.0-100.0); ABG STANDARD HCO3 27.6 MMOL/L. (22.0-26.0); ABG TOTAL CO2 33.3 MMOL/L (22.0-29.0); ABG pH (ARTERIAL) 7.279 UNITS (7.350-7.450)
[2024-11-17 07:36] LABS: ABG PARTIAL PRESSURE CO2 68.1 mmHg (35.0-45.0)
[2024-11-17] MEDS: D5W 1,000 ML IV SCH (08:37)
[2024-11-17] MEDS: DEXTROSE 50% 50ML SYRINGE IV STA (08:40)
[2024-11-17] MEDS: HumuLIN R (REGULAR) INSULIN (NovoLIN R) **100U/ML** PER UNIT IV STA (08:41)
[2024-11-17 09:20] LABS: PROCALCITONIN 0.28 ng/ml
[2024-11-17] MEDS: FUROSEMIDE 20MG/2ML VIAL IV ONE ×2 (10:05→13:08)
[2024-11-17] MEDS: PATIROMER SORBITEX CALCIUM 8.4 GM POWDER PACKET (VELTASSA) PO SCH (12:16)
[2024-11-17 13:13] LABS: ABG BASE EXCESS 5.1 (-2.0-2.0)
[2024-11-17 13:14] LABS: ABG HCO3 34.1 MMOL/L (22.0-26.0); ABG O2 SATURATION 94.5 % (95.0-99.0); ABG PARTIAL PRESSURE O2 82.3 mmHg (75.0-100.0); ABG TOTAL CO2 36.6 MMOL/L (22.0-29.0)
[2024-11-17 13:15] LABS: ABG PARTIAL PRESSURE CO2 81.5 mmHg (35.0-45.0); ABG pH (ARTERIAL) 7.239 UNITS (7.350-7.450)
[2024-11-17 13:26] LABS: MAGNESIUM LEVEL 2.6 MG/DL (1.8-2.4)
[2024-11-17 13:43] LABS: CALCIUM LEVEL 8.2 MG/DL (8.5-10.1); CREATININE FOR GFR 1.04 MG/DL (0.55-1.30); GLOMERULAR FILTRATION RATE 64.7 (>51)
[2024-11-17 14:41] LABS: ABG BASE EXCESS 5.9 (-2.0-2.0); ABG HCO3 33.5 MMOL/L (22.0-26.0); ABG O2 SATURATION 92.6 % (95.0-99.0); ABG PARTIAL PRESSURE CO2 68.4 mmHg (35.0-45.0); ABG PARTIAL PRESSURE O2 69.9 mmHg (75.0-100.0); ABG STANDARD HCO3 29.7 MMOL/L. (22.0-26.0); ABG TOTAL CO2 35.6 MMOL/L (22.0-29.0); ABG pH (ARTERIAL) 7.308 UNITS (7.350-7.450)
[2024-11-17 18:12] LABS: FUNGITELL INTERPRETATION POSITIVE (NEGATIVE); FUNGITELL, SERUM > 500 pg/mL (<60)
[2024-11-17] MEDS: ACETAMINOPHEN *IV* 1,000 MG in IV 1 EA IV ONE (20:14)
[2024-11-17 20:52] LABS: CRYTPOCOCCUS SOURCE Serum
[2024-11-18] VITALS (35 sets, daily range): BP systolic 85–138; BP diastolic 49–71; TEMP 99.1–100.6; O2SAT 83–100
[2024-11-18] MEDS ORDERED: VASOPRESSIN IN 0.9 % NACL 20 UNIT in IV 1 EA IV SCH ×2 (00:10→00:15)
[2024-11-18 00:43] LABS: ABG BASE EXCESS 5.6 (-2.0-2.0); ABG HCO3 32.6 MMOL/L (22.0-26.0); ABG O2 SATURATION 93.7 % (95.0-99.0); ABG PARTIAL PRESSURE CO2 63.3 mmHg (35.0-45.0); ABG PARTIAL PRESSURE O2 73.1 mmHg (75.0-100.0); ABG STANDARD HCO3 29.5 MMOL/L. (22.0-26.0); ABG TOTAL CO2 34.6 MMOL/L (22.0-29.0)
[2024-11-18 05:13] LABS: ABG BASE EXCESS 6.4 (-2.0-2.0); ABG HCO3 33.7 MMOL/L (22.0-26.0); ABG O2 SATURATION 91.1 % (95.0-99.0); ABG PARTIAL PRESSURE O2 64.9 mmHg (75.0-100.0); ABG STANDARD HCO3 30.2 MMOL/L. (22.0-26.0); ABG TOTAL CO2 35.8 MMOL/L (22.0-29.0); ABG pH (ARTERIAL) 7.323 UNITS (7.350-7.450)
[2024-11-18 05:14] LABS: ABG PARTIAL PRESSURE CO2 66.5 mmHg (35.0-45.0)
[2024-11-18 05:21] LABS: HEMATOCRIT 28.6 % (36.0-47.0); HEMOGLOBIN 8.7 g/dl (12.0-15.5); MEAN CORPUSCULAR HEMOGLOBIN 31.2 pg (27.0-33.0); MEAN CORPUSCULAR HGB CONC 30.4 g/dl (32.0-36.5); MEAN CORPUSCULAR VOLUME 102.5 fl (80.0-96.0); PLATELET COUNT, AUTOMATED 175 10^3/uL (150-450); RED BLOOD COUNT 2.79 10^6/uL (4.00-5.40); WHITE BLOOD COUNT 18.2 10^3/uL (4.0-10.0)
[2024-11-18 05:52] LABS: ALBUMIN 1.3 G/DL (3.2-5.2); BILIRUBIN,TOTAL 0.4 MG/DL (0.3-1.2); CALCIUM LEVEL 8.1 MG/DL (8.5-10.1); CREATININE FOR GFR 1.22 MG/DL (0.55-1.30); GLOMERULAR FILTRATION RATE 53.4 (>51); MAGNESIUM LEVEL 2.5 MG/DL (1.8-2.4); POTASSIUM SERUM 4.5 MMOL/L (3.5-5.1); TOTAL PROTEIN 4.2 G/DL (5.7-8.2)
[2024-11-18 07:37] LABS: ABG BASE EXCESS 5.8 (-2.0-2.0); ABG HCO3 34.4 MMOL/L (22.0-26.0); ABG PARTIAL PRESSURE O2 66.1 mmHg (75.0-100.0); ABG STANDARD HCO3 29.6 MMOL/L. (22.0-26.0); ABG TOTAL CO2 36.7 MMOL/L (22.0-29.0)
[2024-11-18 07:39] LABS: ABG PARTIAL PRESSURE CO2 76.6 mmHg (35.0-45.0)
[2024-11-18 09:56] LABS: INR 1.03; PROTHROMBIN TIME 13.8 SECONDS (12.5-14.5)
[2024-11-18] MEDS: PHENYLEPHRINE HCL INJ 50 MG in D5W 495 ML IV SCH (12:35)
[2024-11-18] MEDS: ACETAMINOPHEN *IV* 1,000 MG in IV 1 EA IV ONE (12:47)
[2024-11-18 12:50] LABS: ABG BASE EXCESS 3.4 (-2.0-2.0); ABG HCO3 32.3 MMOL/L (22.0-26.0); ABG STANDARD HCO3 27.4 MMOL/L. (22.0-26.0); ABG TOTAL CO2 34.6 MMOL/L (22.0-29.0); ABG pH (ARTERIAL) 7.255 UNITS (7.350-7.450)
[2024-11-18 12:52] LABS: ABG PARTIAL PRESSURE CO2 74.5 mmHg (35.0-45.0)
[2024-11-18] MEDS: ceFAZolin SODIUM 2 GM in DEXTROSE 5% (D5W) ADV/MINI-BAG 50 ML IV ONE (13:45)
[2024-11-18] MEDS: HEPARIN 1,000UNITS/ML 10ML VIAL (FOR RADIOLOGY & DIALYSIS ONLY) IV STA (14:08)
[2024-11-18 14:52] LABS: ABG BASE EXCESS 7.2 (-2.0-2.0); ABG HCO3 31.9 MMOL/L (22.0-26.0); ABG O2 SATURATION 99.4 % (95.0-99.0); ABG PARTIAL PRESSURE CO2 46.9 mmHg (35.0-45.0); ABG PARTIAL PRESSURE O2 247.6 mmHg (75.0-100.0); ABG STANDARD HCO3 31.1 MMOL/L. (22.0-26.0); ABG TOTAL CO2 33.4 MMOL/L (22.0-29.0); ABG pH (ARTERIAL) 7.451 UNITS (7.350-7.450)
[2024-11-19 08:48] LABS: HISTOPLASMA AG SPECIMEN TYPE SERUM
[2024-11-19] MEDS ORDERED: HEPARIN SOD (PORCINE) 5000UNITS/ML 1ML VIAL/SYRINGE SQ SCH (09:00)
[2024-11-19 18:32] LABS: ASPERGILLUS FLAVUS ABY Negative (Negative); ASPERGILLUS FUMIGATUS ABY Negative (Negative); ASPERGILLUS NIGER ABY Negative (Negative); BLASTOMYCES ANTIBODY LEVEL Negative (Negative)
== END 2024-11-18 15:20 | disposition short-term general hospital (02) | DRG 121 ==
LOC: M ED 12:04 → M ED INP 15:54 → M MSPAV 17:34 → M PCU 11-10 07:42 → M ICU 11-13 11:10
PROVIDERS: ADMIT Internal Medicine; ATTEND Internal Medicine Pulmonary Disease
PROC: B246ZZZ Ultrasonography of Right and Left Heart (ICD-10-PCS; 2024-11-10)
PROC: 0BH17EZ Insertion of Endotracheal Airway into Trachea, Via Natural or Artificial Opening (ICD-10-PCS; principal; 2024-11-13)
PROC: 0B9J8ZZ Drainage of Left Lower Lung Lobe, Via Natural or Artificial Opening Endoscopic (ICD-10-PCS; 2024-11-13)
PROC: 5A1955Z Respiratory Ventilation, Greater than 96 Consecutive Hours (ICD-10-PCS; 2024-11-13)
PROC: 04HY32Z Insertion of Monitoring Device into Lower Artery, Percutaneous Approach (ICD-10-PCS; 2024-11-16)
PROC: 30233N1 Transfusion of Nonautologous Red Blood Cells into Peripheral Vein, Percutaneous Approach (ICD-10-PCS; 2024-11-18)
DX: J12.9 Viral pneumonia, unspecified (principal); J80 Acute respiratory distress syndrome; J47.0 Bronchiectasis with acute lower respiratory infection; N17.9 Acute kidney failure, unspecified; E87.0 Hyperosmolality and hypernatremia; J10.08 Influenza due to other identified influenza virus with other specified pneumonia; J98.2 Interstitial emphysema; J93.9 Pneumothorax, unspecified; J45.909 Unspecified asthma, uncomplicated; K21.9 Gastro-esophageal reflux disease without esophagitis; F39 Unspecified mood [affective] disorder; R00.2 Palpitations; R74.01 Elevation of levels of liver transaminase levels; I47.9 Paroxysmal tachycardia, unspecified; R73.9 Hyperglycemia, unspecified; Z79.899 Other long term (current) drug therapy